=== PATIENT | female | born 1960 | race Caucasian/White ===

== ENCOUNTER 2017-07-07 09:51 | Inpatient (IN) | payer OTHER ==
[~2017-07-07] VITALS: Ht 162.6 cm; Wt 61.6 kg
[~2017-07-07 09:51] MED LIST: VALA10004 PO
[2017-07-07 10:27] VITALS: BP 127/88
[2017-07-07] MEDS ORDERED: LACTATED RINGERS 1,000 ML IV SCH (10:32)
[2017-07-07] MEDS ORDERED: IBUP200C8 PO (10:34)
[2017-07-07] MEDS ORDERED: FENTANYL PF 100 MCG/2ML ONE ×4 (10:36→14:57)
[2017-07-07] MEDS ORDERED: MIDAZOLAM 1 MG/ML, 2ML ONE (10:36)
[2017-07-07] MEDS ORDERED: PROPOFOL 10 MG/ML, 20ML ONE (10:38)
[2017-07-07] MEDS ORDERED: CEFAZOLIN 1,000 MG ONE ×2 (10:39)
[2017-07-07] MEDS ORDERED: ONDANSETRON 2MG/ML, 2ML ONE ×2 (10:40→14:59)
[2017-07-07] MEDS ORDERED: DEXAMETHASONE 4 MG/ML, 1ML ONE ×2 (10:40)
[2017-07-07] MEDS ORDERED: ROCURONIUM 10 MG/ML ONE ×2 (10:40→12:15)
[2017-07-07] MEDS ORDERED: NEOSTIGMINE 1 MG/ML, 10ML ONE (10:41)
[2017-07-07] MEDS ORDERED: LIDOCAINE 1%, 2ML SQ PRN (11:00)
[2017-07-07] MEDS ORDERED: OXYcodone 5 MG/5 ML ORAL.SOL UDC PO PRN (11:30)
[2017-07-07] MEDS ORDERED: MEPERIDINE/PF 25MG/0.5ML IVPush PRN (11:30)
[2017-07-07] MEDS ORDERED: LABETALOL 5MG/ML, 20ML IV PRN (11:30)
[2017-07-07] MEDS ORDERED: hydrALAzine 20 MG/ML, 1ML IV PRN (11:30)
[2017-07-07] MEDS ORDERED: PROMETHAZINE 25 MG/ML, 1ML IV PRN (11:30)
[2017-07-07] MEDS ORDERED: FENTANYL PF 100 MCG/2ML IV PRN (11:30)
[2017-07-07] MEDS ORDERED: ACETAMINOPHEN 325 MG TABLET PO PRN (11:30)
[2017-07-07] MEDS ORDERED: ONDANSETRON 2MG/ML, 2ML IVPush PRN ×2 (11:30→17:30)
[2017-07-07] MEDS ORDERED: BUPIVACAINE/PF 0.5% ONE (11:55)
[2017-07-07] MEDS ORDERED: BUPIVACAINE/PF 0.25% ONE (11:55)
[2017-07-07] MEDS ORDERED: GLYCOPYRROLATE 0.4 MG/2 ML, 2ML ONE (12:15)
[2017-07-07] MEDS: HYDROmorphone 1 MG/ML, 1ML IV PRN ×3 (14:57→15:25)
[2017-07-07] MEDS ORDERED: OXYcodone 5 MG/5 ML ORAL.SOL UDC ONE (14:57)
[2017-07-07] MEDS ORDERED: HYDROmorphone 1 MG/ML, 1ML ONE (14:57)
[2017-07-07] MEDS ORDERED: ACETAMINOPHEN 650 MG/20.3 ML UDC ONE (15:28)
[2017-07-07] MEDS ORDERED: OXYcodone/APAP 5/325MG TABLET ONE (17:26)
[2017-07-07] MEDS: OXYcodone/APAP 5/325MG TABLET PO PRN (17:27)
[2017-07-07] MEDS: LACTATED RINGERS 1,000 ML IV SCH (18:45)
[2017-07-07] MEDS ORDERED: HYDROmorphone 2 MG/ML, 1ML ONE (18:46)
[2017-07-07] MEDS ORDERED: KETOROLAC 30 MG/1 ML ONE (18:48)
[2017-07-07] MEDS: KETOROLAC 30 MG/1 ML IVPush SCH (18:53)
[2017-07-07] MEDS: HYDROmorphone 2 MG/ML, 1ML IVPush PRN ×2 (18:53→22:28)
[2017-07-07] MEDS ORDERED: DIAZEPAM 10 MG TABLET PO PRN (19:00)
[2017-07-07 19:45] VITALS: BP 109/65
[2017-07-08 00:28] VITALS: BP 108/57
[2017-07-08] MEDS: KETOROLAC 30 MG/1 ML IVPush SCH ×2 (02:41→11:03)
[2017-07-08] MEDS: OXYcodone/APAP 5/325MG TABLET PO PRN ×3 (02:42→11:42)
[2017-07-08 03:19] VITALS: BP 111/69
[2017-07-08 07:12] VITALS: BP 104/46
[2017-07-08] MEDS: LACTATED RINGERS 1,000 ML IV SCH (07:27)
[2017-07-08 13:28] VITALS: BP 108/64
[2017-07-08] MEDS ORDERED: OXYC-307 PO (13:38)
[2017-07-08] MEDS ORDERED: PROM25TA10 PO (13:39)
== END 2017-07-08 13:52 | disposition home or self-care (01) | DRG 511 ==
LOC: OUT 09:51 → 4NOR 18:45 → DCLOUNGE 07-08 13:36
PROVIDERS: ADMIT Orthopaedic Surgery; ATTEND Orthopaedic Surgery
PROC: 0PSJ04Z Reposition Left Radius with Internal Fixation Device, Open Approach (ICD-10-PCS; principal; 2017-07-08)
PROC: 0PSH35Z Reposition Right Radius with External Fixation Device, Percutaneous Approach (ICD-10-PCS; 2017-07-08)
DX: S52.512A Displaced fracture of left radial styloid process, initial encounter for closed fracture (principal); S52.511A Displaced fracture of right radial styloid process, initial encounter for closed fracture; M19.90 Unspecified osteoarthritis, unspecified site; S52.611A Displaced fracture of right ulna styloid process, initial encounter for closed fracture; S52.612A Displaced fracture of left ulna styloid process, initial encounter for closed fracture; Z87.891 Personal history of nicotine dependence
CPT/HCPCS: 76001; C1713; J0690; J1100; J1170; J1885; J2250; J2405; J2704; J2710; J3010; J3490; J7120